=== PATIENT | female | born 1955 | race Caucasian/White ===

== ENCOUNTER 2021-11-15 13:21 | Outpatient (CLI) | payer MEDICARE | END 2021-11-15 13:22 | disposition home or self-care (01) | LOC: CSHCT 13:21 | PROVIDERS: ATTEND Internal Medicine | DX: Z12.2 Encounter for screening for malignant neoplasm of respiratory organs (principal); Z87.891 Personal history of nicotine dependence; R91.8 Other nonspecific abnormal finding of lung field; J98.11 Atelectasis | CPT/HCPCS: 71250 ==

== ENCOUNTER 2022-11-08 13:11 | Outpatient (CLI) | payer MEDICARE | END 2022-11-08 13:12 | disposition home or self-care (01) | LOC: CSHMAMMO 13:11 | PROVIDERS: ATTEND Family Medicine | DX: Z12.31 Encounter for screening mammogram for malignant neoplasm of breast (principal); Z91.89 Other specified personal risk factors, not elsewhere classified | CPT/HCPCS: 77063; 77067 ==

== ENCOUNTER 2025-02-13 12:22 | Emergency (ER) | payer MEDICARE ==
[2025-02-13] MEDS ORDERED: Famotidine/PF 20 mg/2ml Vial ONE (12:35)
[2025-02-13] MEDS ORDERED: diphenhydrAMINE 50 MG/ML VIAL ONE (12:35)
== END 2025-02-13 15:27 | disposition home or self-care (01) ==
LOC: CSHERS 12:22
DX: T78.40XA Allergy, unspecified, initial encounter (principal); Z87.891 Personal history of nicotine dependence
CPT/HCPCS: 96374; 96375; 99283; J1200; J1308; J2919; J0169

== ENCOUNTER 2025-04-24 12:00 | Outpatient (CLI) | payer MEDICARE | END 2025-04-24 12:01 | disposition home or self-care (01) | LOC: CSHMRI 12:00 | PROVIDERS: ATTEND Internal Medicine Rheumatology | DX: M65.811 Other synovitis and tenosynovitis, right shoulder (principal); M75.121 Complete rotator cuff tear or rupture of right shoulder, not specified as traumatic ==

== ENCOUNTER 2025-05-18 18:50 | Inpatient (IN) | payer MEDICARE ==
[2025-05-18] MEDS ORDERED: Ondansetron PF 4 MG/2 ML Vial IVP PRN (19:39)
[2025-05-18] MEDS ORDERED: Benzonatate 100 MG CAP PO PRN (19:49)
[2025-05-18] MEDS ORDERED: Melatonin 3 MG TAB PO PRN (21:00)
[2025-05-18 21:06] VITALS: BMI 30.5
[2025-05-18 23:11] LABS: Influenza A by NAA Not Detected (NotDetected); Influenza B by NAA Not Detected (NotDetected); SARS-CoV-2 NAA Rapid Test Not Detected (NotDetected)
[2025-05-19] MEDS ORDERED: Dextrose 50% Abboject 50 ML SYRINGE SLOW IVP PRN (00:31)
[2025-05-19] MEDS ORDERED: Glucagon 1 MG/ML KIT IM PRN (00:31)
[2025-05-19 05:25] LABS: Hematocrit 32.5 % (34.9-44.5); Hemoglobin 10.8 g/dL (12.0-15.5); Mean Corpuscular Hemoglobin 28.0 pg (27.0-33.0); Mean Corpuscular Volume 84.2 fL (81.6-98.3); Platelet Count 418 10x3/uL (150-450); Red Blood Cell (RBC) Count 3.86 10x6/uL (3.90-5.03); White Blood Cell (WBC) Count 12.88 10x3/uL (3.5-10.5)
[2025-05-19 05:26] LABS: MDiff Complete? YES; Platelet Adequacy Comment Appears Adequate; RBC Morphology Within Normal Limits
[2025-05-19 05:33] LABS: ALT (SGPT) 18 U/L (Less than 34); AST (SGOT) 14 U/L (11-34); Albumin 3.0 g/dL (3.1-4.5); Alkaline Phosphatase 87 U/L (40-110); Anion Gap 14 mmol/L (10-20); BUN (Urea Nitrogen) 15 mg/dL (9.8-20.1); Bilirubin, Total 0.2 mg/dL (0.3-1.2); Calc. Creatinine Clearance 82 mL/min (70-130); Calcium 8.9 mg/dL (7.8-10.44); Carbon Dioxide 18 mmol/L (23-31); Chloride 111 mmol/L (98-107); Globulin 3.4 g/dL (2.4-3.5); Glucose 159 mg/dL (83-110); Potassium 4.0 mmol/L (3.5-5.1); Sodium 139 mmol/L (136-145)
[2025-05-19] MEDS: Mometasone 100 MCG/PUFF (1 INHALER) INH SCH (08:24)
[2025-05-19] MEDS: BuPROPion XL 150 MG ER.TAB PO SCH (08:45)
[2025-05-19] MEDS: Azithromycin 500 MG in Sodium Chloride 0.9% 250 ML 250 ML IVPB SCH (08:45)
[2025-05-19] MEDS: Aspirin 81 mg Enteric Coated Tablet PO SCH (08:45)
[2025-05-19] MEDS: cefTRIAXone\\ROCEPHIN 1 GM in Sodium Chloride 0.9% 100 ML IVPB SCH (08:45)
[2025-05-19] MEDS: Enoxaparin 40 MG (0.4 mL) SYRINGE SC SCH (08:45)
[2025-05-19 11:06] LABS: Legionella Urinary Ag Negative (Negative); Strep pneumo Urine Ag NEGATIVE (NEGATIVE)
[2025-05-19] MEDS: Acetaminophen 325 MG TAB PO PRN (17:51)
[2025-05-20 05:45] LABS: #Basophils 0.03 10x3/uL (0.0-0.2); #Eosinophils Less than 0.03 10x3/uL (0.0-0.5); #Monocytes 0.94 10x3/uL (0.0-1.1); #Neutrophils 14.37 10x3/uL (1.5-8.4); %Basophils 0.2 % (0.0-2.0); %Eosinophils 0.0 % (0.0-6.0); %Lymphocytes 15.4 % (18.0-47.0); %Monocytes 5.1 % (0.0-10.0); %Neutrophils 77.7 % (40.0-75.0); Hematocrit 27.2 % (34.9-44.5); Hemoglobin 9.2 g/dL (12.0-15.5); Mean Corpuscular Hemoglobin 28.0 pg (27.0-33.0); Mean Corpuscular Volume 82.9 fL (81.6-98.3); Platelet Count 427 10x3/uL (150-450); Red Blood Cell (RBC) Count 3.28 10x6/uL (3.90-5.03); White Blood Cell (WBC) Count 18.47 10x3/uL (3.5-10.5)
[2025-05-20 05:58] LABS: Anion Gap 11 mmol/L (10-20); BUN (Urea Nitrogen) 13 mg/dL (9.8-20.1); Calc. Creatinine Clearance 87 mL/min (70-130); Calcium 8.7 mg/dL (7.8-10.44); Carbon Dioxide 19 mmol/L (23-31); Chloride 114 mmol/L (98-107); Glucose 115 mg/dL (83-110); Potassium 3.2 mmol/L (3.5-5.1); Sodium 141 mmol/L (136-145)
[2025-05-20] MEDS: predniSONE 20 MG TAB PO SCH (09:29)
[2025-05-20] MEDS: Calcium Carbonate 500 MG ChewTAB PO PRN (21:04)
[2025-05-21 04:50] LABS: #Basophils 0.03 10x3/uL (0.0-0.2); #Eosinophils Less than 0.03 10x3/uL (0.0-0.5); #Monocytes 0.86 10x3/uL (0.0-1.1); #Neutrophils 11.61 10x3/uL (1.5-8.4); %Basophils 0.2 % (0.0-2.0); %Eosinophils 0.1 % (0.0-6.0); %Lymphocytes 22.3 % (18.0-47.0); %Monocytes 5.1 % (0.0-10.0); %Neutrophils 69.3 % (40.0-75.0); Hematocrit 28.4 % (34.9-44.5); Hemoglobin 9.6 g/dL (12.0-15.5); Mean Corpuscular Hemoglobin 28.1 pg (27.0-33.0); Mean Corpuscular Volume 83.0 fL (81.6-98.3); Platelet Count 462 10x3/uL (150-450); Red Blood Cell (RBC) Count 3.42 10x6/uL (3.90-5.03); White Blood Cell (WBC) Count 16.74 10x3/uL (3.5-10.5)
[2025-05-21 05:02] LABS: Anion Gap 12 mmol/L (10-20); BUN (Urea Nitrogen) 10 mg/dL (9.8-20.1); Calc. Creatinine Clearance 82 mL/min (70-130); Calcium 9.5 mg/dL (7.8-10.44); Carbon Dioxide 20 mmol/L (23-31); Chloride 113 mmol/L (98-107); Glucose 96 mg/dL (83-110); Potassium 3.4 mmol/L (3.5-5.1); Sodium 142 mmol/L (136-145)
[2025-05-21] MEDS: Losartan 50 MG TAB PO SCH (08:59)
[2025-05-21] MEDS: Multivit, Therapeutic 1 TAB PO SCH (09:00)
[2025-05-21] MEDS: Pantoprazole 40 MG DR.TAB PO SCH (09:00)
[2025-05-22 05:21] LABS: #Basophils 0.04 10x3/uL (0.0-0.2); #Eosinophils 0.04 10x3/uL (0.0-0.5); #Monocytes 1.00 10x3/uL (0.0-1.1); #Neutrophils 8.05 10x3/uL (1.5-8.4); %Basophils 0.3 % (0.0-2.0); %Eosinophils 0.3 % (0.0-6.0); %Lymphocytes 29.9 % (18.0-47.0); %Monocytes 7.2 % (0.0-10.0); %Neutrophils 57.6 % (40.0-75.0); Hematocrit 29.5 % (34.9-44.5); Hemoglobin 9.7 g/dL (12.0-15.5); Mean Corpuscular Hemoglobin 27.7 pg (27.0-33.0); Mean Corpuscular Volume 84.3 fL (81.6-98.3); Platelet Count 446 10x3/uL (150-450); Red Blood Cell (RBC) Count 3.50 10x6/uL (3.90-5.03); White Blood Cell (WBC) Count 13.96 10x3/uL (3.5-10.5)
[2025-05-22 05:36] LABS: Anion Gap 13 mmol/L (10-20); BUN (Urea Nitrogen) 12 mg/dL (9.8-20.1); Calc. Creatinine Clearance 81 mL/min (70-130); Calcium 9.4 mg/dL (7.8-10.44); Carbon Dioxide 22 mmol/L (23-31); Chloride 111 mmol/L (98-107); Glucose 82 mg/dL (83-110); Potassium 3.5 mmol/L (3.5-5.1); Sodium 142 mmol/L (136-145)
[2025-05-22] MEDS: Senokot S 8.6-50 MG TAB PO PRN (09:22)
[2025-05-22 12:01] VITALS: BP 148/87; TEMP 97.8
== END 2025-05-22 13:45 | disposition home or self-care (01) | DRG 193 ==
LOC: CSHTELE 19:05
PROVIDERS: ADMIT Internal Medicine; ATTEND Internal Medicine
DX: J18.9 Pneumonia, unspecified organism (principal); J96.01 Acute respiratory failure with hypoxia; J44.0 Chronic obstructive pulmonary disease with (acute) lower respiratory infection; J44.1 Chronic obstructive pulmonary disease with (acute) exacerbation; I10 Essential (primary) hypertension; E11.9 Type 2 diabetes mellitus without complications; F39 Unspecified mood [affective] disorder; Z66 Do not resuscitate; Z79.82 Long term (current) use of aspirin; Z79.899 Other long term (current) drug therapy
CPT/HCPCS: 36415; 36416; 80048; 80053; 84145; 85025; 87070; 87205; 87449; 87636; 87899; 94640; 94664; 94760; 94762; 94799; J0456; J0696; J1650; J2919; J7050; J7120; J7512